=== PATIENT | female | born 1955 | race Caucasian/White ===

== ENCOUNTER 2017-08-07 15:25 | Emergency (ER) | payer BC ==
[~2017-08-07] VITALS: Ht 162.6 cm; Wt 89.8 kg
[~2017-08-07 15:25] MED LIST: HYDACE5 PO
[2017-08-07] MEDS ORDERED: CLON.1 PO (15:33)
[2017-08-07] MEDS ORDERED: METO100ER PO (15:33)
[2017-08-07] MEDS ORDERED: CLON.5 PO (15:33)
[2017-08-07] MEDS ORDERED: Lovastatin20 MG PO (15:33)
[2017-08-07] MEDS ORDERED: LISI20 PO (15:33)
[2017-08-07] MEDS ORDERED: Percocet 5-3251 EACH PO (17:13)
[2017-08-07] MEDS ORDERED: Robaxin500 MG PO (17:13)
[2017-08-07] MEDS ORDERED: Baclofen10 MG PO (17:20)
== END 2017-08-07 17:38 | disposition home or self-care (01) ==
LOC: ER 15:25
DX: M54.5 Low back pain (principal); Z79.899 Other long term (current) drug therapy; I10 Essential (primary) hypertension; F41.9 Anxiety disorder, unspecified; E78.00 Pure hypercholesterolemia, unspecified
CPT/HCPCS: 72100; 72220; 96372; 99283; J1885

== ENCOUNTER 2022-06-21 11:40 | Emergency (ER) | payer MEDICARE ==
[~2022-06-21] VITALS: Ht 172.7 cm; Wt 90.7 kg
[~2022-06-21 11:40] MED LIST changes: +Baclofen10 MG PO; +CLON.1 PO; +CLON.5 PO; +LISI20 PO; +Lovastatin20 MG PO; +METO100ER PO; +Percocet 5-3251 EACH PO; +Robaxin500 MG PO
[2022-06-21 11:52] VITALS: BP 166/117
[2022-06-21 12:10] LABS: Calcium, Ionized (POC) 1.09 mmol/L (1.10-1.46); Chloride (POC) 106 mmol/L (98-108); Creatinine (POC) 1.1 mg/dL (0.6-1.0); Glucose (ISTAT POC) 262 mg/dL (70-99); Hemoglobin (POC) 13.3 g/dL (12.0-16.0); Sodium (POC) 137 mmol/L (135-148); Total CO2 (POC) 15 mmol/L (21-32)
[2022-06-21 12:16] LABS: BASOPHILS ABSOLUTE AUTO 0.09 K/mm3 (0.00-0.23); BASOPHILS PERCENT AUTO 0 % (0-2); EOSINOPHILS PERCENT AUTO 0 % (0-6); Hematocrit 38.2 % (33.0-51.0); Hemoglobin 11.7 g/dL (11.5-16.0); IMMATURE GRAN ABSOLUTE AUTO 0.25 K/mm3 (0.00-0.10); IMMATURE GRAN PERCENT AUTO 1 % (0-1); LYMPHOCYTES ABSOLUTE AUTO 5.26 K/mm3 (0.84-5.20); LYMPHOCYTES PERCENT AUTO 23 % (21-46); MONOCYTES ABSOLUTE AUTO 2.31 K/mm3 (0.16-1.47); MONOCYTES PERCENT AUTO 10 % (4-13); Mean Corpuscular HGB 27.6 pg (26.0-34.0); Mean Corpuscular HGB Conc 30.6 g/dL (31.5-36.5); Mean Corpuscular Volume 90 fL (80-100); Mean Platelet Volume 9.5 fL (9.1-12.4); NEUTROPHILS ABSOLUTE AUTO 14.85 K/mm3 (1.96-9.15); NEUTROPHILS PERCENT AUTO 65 % (41-73); NRBC ABSOLUTE 0.07 K/mm3 (0.00-0.02); NRBC Auto 0.3 /100 WBC (0.0-0.2); Platelet Count 275 K/mm3 (150-400); RDW Coefficient Variation 14.8 % (11.7-14.2); RDW Standard Deviation 49.1 fL (35.1-46.3); Red Blood Cell Count 4.24 M/mm3 (3.80-5.20); White Blood Cell Count 22.86 K/mm3 (4.00-11.30)
[2022-06-21 12:32] LABS: Albumin, Blood 2.6 g/dL (3.4-5.0); Albumin/Globulin Ratio 0.6 (0.8-1.8); Bilirubin, Total 1.4 mg/dL (0.1-1.0); Bun/Creatinine Ratio 14.5 (12.0-20.0); Calcium, Blood 8.6 mg/dL (8.5-10.1); Creatinine, Blood 1.1 mg/dL (0.40-1.00); Globulin, Blood 4.2 g/dL (2.2-4.0); Magnesium, Blood 2.3 mg/dL (1.6-2.4); Potassium, Blood 4.2 mmol/L (3.5-5.5); Total Protein, Blood 6.8 g/dL (6.4-8.2)
--- NOTE | 2022-06-21 12:38 | NUR ---
Spiritual Care: ED Code response/ EOL Pt. was being given chest compressions when this senior software qa engineer was contacted. While meeting with spouse and daughter in the consult room, Pt. coded 2x. The family and this senior software qa engineer were summoned to Pts. bedside, where the family decided to stop CPR. Patient TOD was approx. 12:12. Stayed with Spouse and daughter, offering grief support. Prayed for the family and gave an EOL blessing for the Pt. Facilitated life review amid the tears. Listened with empathy and a calming presence. Pts. daughter is cathartic. Stayed with family until they assessed they were done. The spouse chose [facility] for services. Family verbalized that they needed a break but would like to be present when Ada[facility] comes for the Pt.
== END 2022-06-21 15:40 ==
LOC: ER 11:40
PROVIDERS: Emergency Medicine
DX: I46.9 Cardiac arrest, cause unspecified (principal); I10 Essential (primary) hypertension; Z79.899 Other long term (current) drug therapy
CPT/HCPCS: 31500; 36415; 80047; 80053; 83735; 84484; 85014; 85025; 86850; 86900; 86901; 92950; 93005; 93010; 96374-59; 96375-59; 99285-25; J0330; J0461; J7030